=== PATIENT | female | born 1935 | race Caucasian/White ===

== ENCOUNTER 2016-08-10 22:39 | Emergency (ER) | payer MEDICARE, OTHER ==
[2016-08-11 00:55] LABS: HEMOGLOBIN 7.7 gm/dl (12.3-15.3); RED BLOOD COUNT 2.57 M/UL (4.00-5.10); WHITE BLOOD COUNT 17.7 K/UL (4.5-11.0)
[2016-08-11 06:39] LABS: WHITE BLOOD COUNT 21.3 K/UL (4.5-11.0)
[2016-08-11 06:47] LABS: HEMOGLOBIN 6.6 gm/dl (12.3-15.3); RED BLOOD COUNT 2.21 M/UL (4.00-5.10)
[2016-08-11 09:55] LABS: HEMOGLOBIN 6.4 gm/dl (12.3-15.3)
== END 2016-08-11 10:23 | disposition short-term general hospital (02) ==
LOC: ER1 22:39 → ZEROF 08-11 03:00
PROVIDERS: Emergency Medicine; Internal Medicine; Physician Assistant
DX: M25.551 Pain in right hip (principal); E87.6 Hypokalemia; E11.65 Type 2 diabetes mellitus with hyperglycemia; D72.829 Elevated white blood cell count, unspecified; J45.909 Unspecified asthma, uncomplicated; N17.9 Acute kidney failure, unspecified; I48.91 Unspecified atrial fibrillation; Z90.710 Acquired absence of both cervix and uterus; Z88.5 Allergy status to narcotic agent; Z79.01 Long term (current) use of anticoagulants
CPT/HCPCS: 36415; 36430; 51702; 73502; 80048; 80053; 80162; 81001; 82570; 83735; 84300; 85014; 85018; 85025; 85610; 85730; 86850; 86900; 86901; 86920; 86927; 87086; 89050; 93005; 96361; 96372; 96374; 96375; 96376; 99285; J1815; J2270; J2405; J3430; J7030; J7050; P9016; P9017

== ENCOUNTER 2016-09-11 10:55 | Emergency (ER) | payer MEDICARE, OTHER ==
[2016-09-11 12:10] LABS: HEMOGLOBIN 11.3 gm/dl (12.3-15.3); RED BLOOD COUNT 3.87 M/UL (4.00-5.10); WHITE BLOOD COUNT 10.4 K/UL (4.5-11.0)
[2016-09-11 12:43] LABS: BUN/CREATININE RATIO 43 (0-10)
== END 2016-09-11 18:10 | disposition short-term general hospital (02) ==
LOC: ER1 10:55 → ZEROF 13:30
PROVIDERS: Emergency Medicine
DX: K43.6 Other and unspecified ventral hernia with obstruction, without gangrene (principal); I82.401 Acute embolism and thrombosis of unspecified deep veins of right lower extremity; R11.2 Nausea with vomiting, unspecified; I48.91 Unspecified atrial fibrillation; E11.9 Type 2 diabetes mellitus without complications; I10 Essential (primary) hypertension; J45.909 Unspecified asthma, uncomplicated; M19.90 Unspecified osteoarthritis, unspecified site; D64.9 Anemia, unspecified; K21.9 Gastro-esophageal reflux disease without esophagitis; E78.5 Hyperlipidemia, unspecified; Z79.02 Long term (current) use of antithrombotics/antiplatelets; Z88.5 Allergy status to narcotic agent; Z88.8 Allergy status to other drugs, medicaments and biological substances
CPT/HCPCS: 36415; 80053; 81001; 82150; 83605; 83690; 84484; 85025; 85610; 85730; 86850; 86900; 86901; 93005; 96361; 96365; 96375; 99285; C9113; J1335; J2270; J2405; J7050